=== PATIENT | male | born 1945 | race Caucasian/White ===

== ENCOUNTER → 2016-08-03 | Day surgery (SDC) | payer MEDICARE ==
[~2016-08-03] VITALS: Ht 188 cm; Wt 121.5 kg
[~2016-08-03] MED LIST: ASPI1TAB69 PO; ATROPINE SULFATE 1% OPHT SOLN 2 ML BTL ONE; BALANCED SALT SOLN OPHT IRRIG 15 ML BTL ONE; BUPIVACAINE HCL PF 0.75% 10 ML VIAL ONE; CYCLOPENTOLATE HCL 1% OPHT SOLN 2 ML BTL ONE; DEXAMETHASONE SOD PHOS 4 MG/ML VIAL ONE; EPINEPHrine HCL (1:1000) 1 MG/ML VIAL ONE; FAMOTIDINE 20 MG/2 ML VIAL ONE; HYDR25TA5 PO; METO25TA6 PO; METOPROLOL TARTRATE 25 MG TAB ONE; MIDAZOLAM HCL 2 MG/2 ML VIAL ONE; MULT1TAB84 PO; OMEG100037 PO; ONDANSETRON HCL 4 MG/2 ML VIAL IV PUSH ONE; PHENYLEPH/NS 1000 MCG/10 ML SYR IV ONE; PHENYLEPHRINE HCL 2.5% OPTH SOLN 2 ML BTL ONE; PROPOFOL 200 MG/20 ML AMP IV ONE; SERT-132 PO; SIMV20TA PO; STERILE WATER FOR INJ 20 ML VIAL ONE; TOBRAMYCIN 0.3%/DEXAMETHASONE 0.1% OPHT SUSP 5 ML BTL ONE; TOBRAMYCIN/DEXAMETHASONE OPTH OINT 3.5 GM TUBE ONE; TRIAMCINOLONE ACETONIDE/PF 40 MG/ML OPTH VIAL ONE; TROPICAMIDE 1% OPTH SOLN 2 ML BTL ONE; ceFAZolin INJ 1,000 MG VIAL ONE; ePHEDrine/NS 25 MG/5 ML SYR IV ONE; fentaNYL CITRATE 250 MCG/5 ML AMP ONE
[2016-08-03 06:28] VITALS: BP 121/75; PULSE 65; RESP 20; TEMP 97.6; O2SAT 98
[2016-08-03 06:55] LABS: AUTOMATED NEUTROPHIL # 2.9 TH/MM3 (1.8-7.7); BASOPHIL # 0.1 TH/MM3 (0-0.2); EOSINOPHIL # 0.3 TH/MM3 (0-0.4); EOSINOPHIL % 4.8 % (0.0-4.0); HEMATOCRIT 40.2 % (39.0-51.0); HEMO FLAGS DIFF FINAL; LYMPH % 34.1 % (9.0-44.0); MONO % 10.5 % (0.0-8.0); NEUT % 49.6 % (16.0-70.0); PLATELET COUNT 233 TH/MM3 (150-450); RED BLOOD COUNT 4.14 MIL/MM3 (4.50-5.90); RED CELL DISTRIBUTION WIDTH 13.2 % (11.6-17.2); WHITE BLOOD COUNT 5.9 TH/MM3 (4.0-11.0)
[2016-08-03] MEDS: CYCLOPENTOLATE HCL 1% OPHT SOLN 2 ML BTL LEFT EYE SCH ×4 (07:25→08:11)
[2016-08-03] MEDS: TROPICAMIDE 1% OPTH SOLN 2 ML BTL LEFT EYE SCH ×4 (07:25→08:11)
[2016-08-03] MEDS: ATROPINE SULFATE 1% OPHT SOLN 5 ML BTL LEFT EYE SCH ×4 (07:25→08:11)
[2016-08-03] MEDS: PHENYLEPHRINE HCL 2.5% OPTH SOLN 2 ML BTL LEFT EYE SCH ×4 (07:25→08:11)
--- NOTE | 2016-08-03 08:01 | EKG ---
Date Performed: 08/03/2016 Time Performed: 06:51:09 PTAGE: 71 years EKG: SINUS BRADYCARDIA BORDERLINE ECG NO PREVIOUS TRACING DOCTOR: Sylvester Macias Interpretating Date/Time 08/03/2016 08:00:54
[2016-08-03 11:58] VITALS: BP 110/78; PULSE 65; RESP 20; TEMP 97.6; O2SAT 96
--- NOTE | 2016-08-04 20:17 | MP ---
cc: CAMMY ROLAND M.D. DATE OF SURGERY: 08/03/2016. PREOPERATIVE DIAGNOSIS: Rhegmatogenous retinal detachment, left eye. POSTOPERATIVE DIAGNOSIS: Rhegmatogenous retinal detachment, left eye. OPERATIVE PROCEDURE PERFORMED: A trans pars plana vitrectomy with internal drainage of subretinal fluid using Perfluoron liquid, laser retinopexy and gas fluid exchange, left eye. SURGEON: Cammy Roland MD. ANESTHESIA: General laryngeal mask anesthesia. INDICATIONS FOR THE PROCEDURE: Mr. Andres is a 71-year-old gentleman who presented to [facility] 08/01/16 with a rhegmatogenous retinal detachment of his left eye. The detachment went from approximately one to eight o'clock. It was bisecting the fovea. The patient is pseudophakic. The risks and benefits of surgery were discussed with the patient and it was recommended that he be consented for a pars plana vitrectomy, possible scleral buckle, gas fluid exchange and laser to the left eye. He wished to proceed and informed consent was obtained. No guarantee was made as to visual outcome. DESCRIPTION OF THE PROCEDURE IN DETAIL: He was brought to [facility] operating room #1 and placed on the operating table. Appropriate anesthesia monitoring devices were applied. He was placed under general anesthesia using a laryngeal mask. The left eye was identified as the operative site and then prepped and draped in the usual sterile fashion. A lid speculum was placed. At this point an appropriate time-out was called with the patient information being reviewed and the surgical team agreeing to the surgical site and planned procedure. The microscope was brought around and adjusted. Using the Derrek 23-gauge vitrectomy system, the trocar cannulas were placed 3.5 mm posterior to the limbus after first displacing the conjunctiva and with a beveled entrance. The first one was placed at approximately the 3:30 o'clock position and verified to be in the posterior chamber. An infusion cannula was affixed to it and it was turned on. Two additional trocar cannulas were placed in similar fashion at 10 and 2 o'clock. The eye was entered with the Endo sensor operator light pipe and vitrectomy cutter and using the biome wide angle viewing system a core vitrectomy and more peripheral vitrectomy were carried out. Perfluoron liquid was used to read to flatten the retina and allow shaving of the vitreous base and anterior vitreous without the over mobility of the retina. Once that had been accomplished, the rest of the posterior chamber was filled using the Perfluoron and then using both the endolaser probe and the laser indirect ophthalmoscope a 360 degrees peripheral PRP was performed. The break was found at 2 o'clock and this area was treated nicely using a power of 300 with the endolaser probe to 04:50 with the NELDA delivery system and 8.1-second exposure. A total of 1290 laser spots were placed. The Perfluoron was then exchanged out for air and the air exchanged out for a 15% mixture of C3F8 gas. The retina was flat. The cannulas were removed one by one with tamponade of the site with a cotton swab. The superonasal sclerotomy leak and therefore conj cutdown was done over it and a single Vicryl suture was used to secure it with the conj being also closed with a single 7-0 Vicryl. Atropine drops were placed on the cornea followed by subconjunctival injections of Ancef 125 mg in 0.5 cc and Decadron 2 mg in 0.5 cc. The lid speculum was removed and TobraDex ointment was placed on the cornea. The eye was then patched and shielded and the patient had the laryngeal mass removed in the room. He was returned recovery in good condition laying on his right side, and when awake and cooperative, he will be asked to assume a face-down position. MD JUMA Love/LAVON /1:22 PM /8:08 PM
== END | disposition home or self-care (01) ==
LOC: HSDC 05:49
PROVIDERS: ATTEND Ophthalmology
DX: H33.002 Unspecified retinal detachment with retinal break, left eye (principal); I10 Essential (primary) hypertension; E78.5 Hyperlipidemia, unspecified
CPT/HCPCS: 00145; 67113; 85025; 93005; J0171; J0690; J1100; J2250; J2370; J2405; J3010; J3300